=== PATIENT | female | born 1980 | race African-American/Black ===

== ENCOUNTER 2020-10-12 07:35 | Emergency (ER) | payer OTHER, MEDICAID ==
[~2020-10-12] VITALS: Ht 162.6 cm; Wt 74.0 kg
[2020-10-12] MEDS ORDERED: SODIUM CHLORIDE 0.9% 1000ML BAG (SEPSIS BOLUS) IV ONE (08:00)
[2020-10-12] MEDS ORDERED: PANTOPRAZOLE SODIUM 40 MG/VIAL IV ONE (08:00)
[2020-10-12 08:22] LABS: BASOPHILS % 0.8 % (0.0-2.0); HEMATOCRIT. 44.6 % (36.0-48.0); HEMOGLOBIN. 15.2 g/dL (12.0-16.0); LYMPHOCYTES % 20.1 % (20.0-50.0); MEAN CORPUSCULAR HEMOGLOBIN 27.9 pg (28.0-32.0); MEAN CORPUSCULAR VOLUME 82.2 fL (81.0-99.0); MEAN PLATELET VOLUME 8.6 fl (7.4-10.4); MONOCYTES % 6.1 % (2.0-8.0); PLATELET 182 x1000/uL (130-400); RED BLOOD CELL COUNT 5.43 mill/uL (4.2-5.4); RED CELL DISTRIBUTION WIDTH 13.8 % (11.6-14.6)
[2020-10-12 08:27] LABS: CHLORIDE 100 mEq/L (98-107)
[2020-10-12 08:31] LABS: ETHANOL BLOOD < 10 mg/dL; INR 1.1; PROTHROMBIN TIME 11.9 sec (9.6-11.0)
[2020-10-12 08:36] LABS: CREATINE KINASE 385 IU/L (26-192)
[2020-10-12 08:37] LABS: HCG SCREEN NEGATIVE
[2020-10-12] MEDS ORDERED: ONDANSETRON HCL 4MG/2ML INJ IV ONE (08:45)
[2020-10-12] MEDS ORDERED: KETOROLAC 15MG/ML VIAL IV ONE ×2 (08:45→10:45)
[2020-10-12 08:51] LABS: CLARITY URINE CLEAR (CLEAR); COLOR URINE DARK YELLOW (YELLOW); KETONES URINE 4+ (NEGATIVE); LEUKOCYTE ESTERASE URINE TRACE (NEGATIVE); NITRITE URINE NEGATIVE (NEGATIVE); OCCULT BLOOD URINE TRACE (NEGATIVE); PROTEIN URINE 3+ (NEGATIVE)
[2020-10-12 09:25] LABS: *AMPHETAMINES SCREEN URINE NEGATIVE (NEGATIVE); *BARBITURATES SCREEN URINE NEGATIVE (NEGATIVE); *BENZODIAZEPINES SCREEN URINE NEGATIVE (NEGATIVE); *COCAINE SCREEN URINE NEGATIVE (NEGATIVE)
[2020-10-12 09:26] LABS: METHADONE URINE SCREEN NEGATIVE (NEGATIVE); OPIATES URINE SCREEN NEGATIVE (NEGATIVE); PHENCYCLIDINE URINE SCREEN NEGATIVE (NEGATIVE)
[2020-10-12 09:35] LABS: CANNABINOID URINE SCREEN PRESUMTIVE POSITIVE (NEGATIVE)
[2020-10-12] MEDS ORDERED: DOXYCYCLINE HYCLATE 100MG CAPSULE PO NR (11:30)
[2020-10-12] MEDS ORDERED: IBUP-2029 MT (11:32)
[2020-10-12] MEDS ORDERED: ONDA4TAB5 MT (11:32)
[2020-10-12] MEDS ORDERED: DOXY100C2 MT (11:32)
[2020-10-12] MEDS ORDERED: ALBU6.7H9 INH (11:35)
[2020-10-12 11:48] VITALS: BP 132/72
[2020-10-12] MEDS ORDERED: IOHEXOL-300 100 ML BOTTLE ONE (12:04)
== END 2020-10-12 12:24 | disposition home or self-care (01) ==
LOC: ER 07:35 → CANBEDREQ 12:42
DX: U07.1 COVID-19 (principal); J18.9 Pneumonia, unspecified organism; N39.0 Urinary tract infection, site not specified; Z88.1 Allergy status to other antibiotic agents
CPT/HCPCS: 36415; 71045; 74177; 80053; 80305; 80320; 81003; 81025; 82550; 83605; 83690; 84145; 84484; 84703; 85025; 85610; 86850; 86900; 86901; 87040; 87077; 87086; 87186; 93005; 96361; 96374; 96375; 96376; 99285; C9113; C9803; J1885; J2405; J7030; Q9967; U0003; Z7610; G0480

== ENCOUNTER 2020-10-13 11:21 | Emergency (ER) | payer OTHER, MEDICAID ==
[~2020-10-13] VITALS: Ht 167.6 cm; Wt 68.0 kg
[~2020-10-13 11:21] MED LIST: ALBU6.7H9 INH; DOXY100C2 MT; IBUP-2029 MT; ONDA4TAB5 MT
[2020-10-13 13:10] LABS: BG BASE EXCESS 1.4 mmol/L (-2.0-2.0); BG CARBOXYHEMOGLOBIN 0.1 % (0.5-1.5); BG DEOXYHEMOGLOBIN 1.7 % (0.0-5.0); BG FRACTION INSPIRED OXYGEN 21; BG HCO3 ACT 20.3 mmol/L (22.0-26.0); BG OXYGEN SATURATION 98.3 % (92.0-98.5); BG OXYHEMOGLOBIN 97.2 % (94.0-97.0); BG PCO2 19.7 mmHg (35.0-45.0); BG PH 7.631 (7.350-7.450); BG PO2 97.4 mmHg (75.0-100.0); BG SAMPLE SITE LEFT RADIAL; BG TOTAL HEMOGLOBIN 13.5 g/dL (12.0-18.0); BG VENT MODE ROOM AIR
[2020-10-13] MEDS ORDERED: MORPHINE SULFATE 4 MG/ML CPJ (NOT FOR IM USE) IV STA (14:42)
[2020-10-13] MEDS ORDERED: ONDANSETRON HCL 4MG/2ML INJ IV STA (14:42)
[2020-10-13] MEDS ORDERED: DEXAMETHASONE 10 MG/ML VIAL IV ONE (14:45)
[2020-10-13] MEDS ORDERED: AZITHROMYCIN 500 MG in DEXT 5% WATER 250 ML IV ONE (14:45)
[2020-10-13] MEDS ORDERED: CEFTRIAXONE 1 G PREMIX 50 ML IV ONE (14:45)
[2020-10-13] MEDS ORDERED: SODIUM CHLORIDE 0.9% 1,000 ML IV ONE (14:45)
[2020-10-13 16:01] LABS: BASOPHILS % 0.4 % (0.0-2.0); HEMATOCRIT. 38.3 % (36.0-48.0); HEMOGLOBIN. 12.6 g/dL (12.0-16.0); LYMPHOCYTES % 18.7 % (20.0-50.0); MEAN CORPUSCULAR HEMOGLOBIN 27.7 pg (28.0-32.0); MONOCYTES % 3.8 % (2.0-8.0); NEUTROPHILS % 77.1 % (40.0-76.0); PLATELET 192 x1000/uL (130-400); RED BLOOD CELL COUNT 4.56 mill/uL (4.2-5.4); RED CELL DISTRIBUTION WIDTH 13.8 % (11.6-14.6)
[2020-10-13 16:12] LABS: INR 1.2; PROTHROMBIN TIME 12.7 sec (9.6-11.0)
[2020-10-13 16:13] LABS: CHLORIDE 104 mEq/L (98-107)
[2020-10-13 16:16] LABS: HCG SCREEN NEGATIVE
[2020-10-13 16:59] VITALS: BP 117/77
== END 2020-10-13 18:38 | disposition short-term general hospital (02) ==
LOC: ER 11:21 → CANBEDREQ 23:45
DX: U07.1 COVID-19 (principal); J12.82 Pneumonia due to coronavirus disease 2019; Z88.1 Allergy status to other antibiotic agents
CPT/HCPCS: 36415; 36600; 71045; 80053; 82375; 82805; 83605; 83880; 84145; 84484; 84703; 85025; 85610; 87040; 93005; 96361; 96365; 96368; 96375; 99285; J0456; J0696; J1100; J2270; J2405; J7030; J7060; Z7610